=== PATIENT | male | born 1985 | race Caucasian/White ===

== ENCOUNTER 2017-12-02 20:12 | Emergency (ER) | payer BC ==
[2017-12-02 20:26] VITALS: BP 120/74
--- NOTE | 2017-12-02 20:41 | ER Document Report ---
HPI - HPI Patient complains to provider of: Flulike symptoms Pain Level: 2 Context: Patient is a 32-year-old male presents emergency department complaining of body aches, sinus congestion and sore throat. Patient states that he did not get a flu shot this year. Otherwise denies any ear pain, difficulty swallowing, difficulty breathing, cough, chest pain, shortness of breath, nausea, vomiting, abdominal pain diarrhea constipation denies any sick contacts at home or work Past Medical History - Social History Smoking Status: Current Every Day Smoker Family History: Reviewed & Not Pertinent Vertical Provider Document - CONSTITUTIONAL Agree With Documented VS: Yes Notes: PHYSICAL EXAM GENERAL: Alert, interacts well. HEENT: NCAT, pale conjunctiva, extraocular movements intact, pupils PERRL. external ear normal, no evidence of external auditory canal tenderness, blood/ drainage, cerumen impaction, TM intact without evidence of effusion, bulging, injection, MMM, Uvula midline. Airway patent. No evidence of tonsillar enlargement, peritonsillar abscess, retropharyngeal abscess. LUNGS: Clear to auscultation bilaterally, no wheezes, rales, or rhonchi. No respiratory distress. HEART: Regular rate and rhythm. No murmurs, gallops, or rubs. EXTREMITIES: Moves all 4 extremities spontaneously. No edema, radial and dorsalis pedis pulses 2/4 bilaterally. No cyanosis. NEUROLOGICAL: Alert and oriented x4. Normal speech. PSYCH: Normal affect, normal mood. SKIN: Warm, dry, normal turgor. No rashes or lesions noted. - INFECTION CONTROL TRAVEL OUTSIDE OF THE [place] IN LAST 30 DAYS: No - RESPIRATORY O2 Sat by Pulse Oximetry: 98 Course - Re-evaluation Re-evalutation: 12/02/17 21:25 Patient presents with cough, and fever at home consistent with a diagnosis of influenza. Influenza testing is positive. Patient is overall well in appearance, in no acute distress. Lung sounds clear. Able to tolerate oral intake without difficulty here in the emergency department. After risks and benefits conversation with the patient regarding the use of Tamiflu, they have elected to use supportive care without Tamiflu based on concerns about lack of efficacy as well as the side effect profile. At this time will discharge with return precautions and follow-up recommendations. Verbal discharge instructions given a the bedside and opportunity for questions given. Medication warnings reviewed. Patient is in agreement with this plan and has verbalized understanding of return precautions and the need for primary care follow-up in the next 24-72 hours. - Vital Signs Vital signs: Temp Pulse Resp BP Pulse Ox 99.7 F 99 14 120/74 98 12/02/17 20:25 12/02/17 20:25 12/02/17 20:25 12/02/17 20:25 12/02/17 20:25 Discharge - Discharge Clinical Impression: Influenza A Condition: Good Disposition: HOME, SELF-CARE Instructions: Influenza ([facility]) Additional Instructions: You have influenza. There is no treatment that is effective for this diagnosis other than supportive care at home. This includes drinking plenty of fluids, using Tylenol or ibuprofen as needed for fever and discomfort. Please follow closely with you primary care physician the next 1-2 days regarding this diagnosis. Return to the emergency department immediately if you began to have persistent vomiting prevents you from being able to keep fluids down for more than 12 hours, you pass out, you began having difficulty breathing, you become confused, or you have any other symptoms that are worrisome to you.
[2017-12-02 21:16] LABS: A TYPE INFLUENZA AG POSITIVE (NEGATIVE); B INFLUENZA AG NEGATIVE (NEGATIVE)
== END 2017-12-02 21:25 | disposition home or self-care (01) ==
LOC: ER 20:12
DX: J11.1 Influenza due to unidentified influenza virus with other respiratory manifestations (principal); R09.81 Nasal congestion; F17.200 Nicotine dependence, unspecified, uncomplicated; R05 Cough; R50.9 Fever, unspecified
CPT/HCPCS: 87070; 87804; 87880; 99283